=== PATIENT | female | born 1985 | race Caucasian/White ===

== ENCOUNTER 2024-03-16 16:38 | Emergency (ER) | payer OTHER ==
[~2024-03-16] VITALS: Ht 157.5 cm; Wt 68.2 kg
[2024-03-16] MEDS ORDERED: ZYRTEC ALLERGY10 MG PO (16:52)
[2024-03-16 16:53] VITALS: BP 150/104
[2024-03-16] MEDS ORDERED: LOESTRIN 21 1/21 TAB PO (16:53)
[2024-03-16] MEDS ORDERED: Ketorolac 30 MG/ML VIAL IM ONE (17:30)
== END 2024-03-16 17:36 ==
LOC: ED 16:38
DX: S06.0XAA Concussion with loss of consciousness status unknown, initial encounter (principal); S13.4XXA Sprain of ligaments of cervical spine, initial encounter; V63.5XXA Driver of heavy transport vehicle injured in collision with car, pick-up truck or van in traffic accident, initial encounter; Y92.410 Unspecified street and highway as the place of occurrence of the external cause
CPT/HCPCS: J1885